=== PATIENT | male | born 1965 | race Caucasian/White ===

== ENCOUNTER 2018-10-15 06:31 | Day surgery (SDC) | payer OTHER ==
[2018-10-15] MEDS ORDERED: CEFAZOLIN 2 GM/50 ML (PMX) 50 ML IVPB (07:30)
[2018-10-15] MEDS: SOD CHLORIDE 0.9% 1,000 ML IV (07:32)
[2018-10-15] MEDS ORDERED: LIDOCAINE 2% (SDV) 5 ML INJ (09:13)
[2018-10-15] MEDS ORDERED: MIDAZOLAM 1 MG/ML 2 ML INJ (09:13)
[2018-10-15] MEDS ORDERED: ETOMIDATE 20 MG INJ (09:13)
[2018-10-15] MEDS ORDERED: PROPOFOL 20 ML (09:13)
[2018-10-15] MEDS ORDERED: ROPIVACAINE 0.5 % 30 ML VIAL (09:15)
[2018-10-15] MEDS ORDERED: OXYCODONE/ACETAMINOPHEN (5/325) TAB PO ×2 (09:30)
[2018-10-15] MEDS ORDERED: ONDANSETRON 4 MG INJ IV (09:30)
[2018-10-15] MEDS ORDERED: HYDROmorphONE 1 MG/5 ML IV SYRINGE IV (09:30)
[2018-10-15] MEDS ORDERED: hydrALAzine 20 MG INJ IV (09:30)
[2018-10-15] MEDS ORDERED: LABETALOL HCL 20MG INJ IV (09:30)
[2018-10-15] MEDS ORDERED: CEFAZOLIN 1 GM INJ (09:36)
[2018-10-15] MEDS ORDERED: ONDANSETRON 4 MG INJ (09:37)
[2018-10-15] MEDS ORDERED: DEXAMETHASONE 4 MG/ML 5 ML INJ (09:37)
[2018-10-15] MEDS: POLYMYXIN/BACITRACIN 1L IRRIG (09:45)
[2018-10-15] MEDS ORDERED: FENTAnyl 50 MCG/ML VIAL (09:55)
[2018-10-15] MEDS ORDERED: HYDROCODONE/APAP (5/325) TAB PO (10:30)
[2018-10-15] MEDS: HYDROmorphONE 1 MG/5 ML IV SYRINGE IV ×2 (10:51→10:58)
[2018-10-15] MEDS ORDERED: LIDOCAINE 100 MG SYRINGE (14:58)
== END 2018-10-15 12:45 | disposition home or self-care (01) ==
LOC: SDS 06:31
DX: K40.30 Unilateral inguinal hernia, with obstruction, without gangrene, not specified as recurrent (principal); I10 Essential (primary) hypertension; E78.5 Hyperlipidemia, unspecified
CPT/HCPCS: 49507